=== PATIENT | male | born 1995 | race Caucasian/White ===

== ENCOUNTER 2020-03-17 16:30 | Emergency (ER) | payer OTHER ==
[~2020-03-17] VITALS: Ht 167.6 cm; Wt 81.6 kg
[2020-03-17 16:36] VITALS: Ht 167.6 cm; Wt 81.6 kg
[2020-03-17 17:48] VITALS: BP 125/57
== END 2020-03-17 17:48 | disposition home or self-care (01) ==
LOC: ED 16:30
DX: S21.112A Laceration without foreign body of left front wall of thorax without penetration into thoracic cavity, initial encounter (principal); Z90.89 Acquired absence of other organs; X58.XXXA Exposure to other specified factors, initial encounter; Y93.89 Activity, other specified; Y92.89 Other specified places as the place of occurrence of the external cause; Y99.8 Other external cause status
CPT/HCPCS: 90715; J2001

== ENCOUNTER 2020-03-19 14:01 | Emergency (ER) | payer OTHER | END 2020-03-19 14:23 | disposition left against medical advice (07) | LOC: ED 14:01 | DX: Z53.21 Procedure and treatment not carried out due to patient leaving prior to being seen by health care provider (principal) ==

== ENCOUNTER 2020-12-27 19:28 | Emergency (ER) | payer OTHER ==
[~2020-12-27] VITALS: Ht 165.1 cm; Wt 85.7 kg
[2020-12-27 19:37] VITALS: Ht 165.1 cm; Wt 85.7 kg
[2020-12-27] MEDS ORDERED: CEPHALEXIN500 MG PO (20:43)
[2020-12-27 21:21] VITALS: BP 149/104
== END 2020-12-27 21:08 | disposition home or self-care (01) ==
LOC: ED 19:28
DX: S91.135A Puncture wound without foreign body of left lesser toe(s) without damage to nail, initial encounter (principal); W45.8XXA Other foreign body or object entering through skin, initial encounter; Y93.89 Activity, other specified; Y92.89 Other specified places as the place of occurrence of the external cause; Y99.8 Other external cause status
CPT/HCPCS: 90715; J2001